=== PATIENT | female | born 1945 | race Caucasian/White ===

== ENCOUNTER 2023-07-03 12:33 | Outpatient (CLI) | payer MEDICARE, SELFPAY ==
--- NOTE | 2023-07-03 12:46 | ECG_ITS ---
Measurements Intervals [place] Rate: 84 P: 68 MT: 157 QRS: -18 QRSD: 79 T: 58 QT: 355 QTc: 420 Interpretive Statements SINUS RHYTHM LOW QRS VOLTAGE IN PRECORDIAL LEADS BORDERLINE R WAVE PROGRESSION, ANTERIOR LEADS BASELINE ARTIFACT- I, II, V4-V6 BORDERLINE ECG NO PREVIOUS ECG AVAILABLE FOR COMPARISON Electronically Signed On 07-03-2023 14:40:40 DENTAL HYGIENE PROFESSOR by Percy Gong D.O.
[2023-07-03 13:12] LABS: Hematocrit 23.4 % (37.0-47.0)
[2023-07-03 13:23] LABS: Hemoglobin 6.8 g/dL (12.0-15.0)
== END 2023-07-03 12:34 | disposition home or self-care (01) ==
LOC: ANHSURGERY 12:37
PROVIDERS: Anesthesiology; Visit Provider Urology
DX: Z01.818 Encounter for other preprocedural examination (principal); E78.00 Pure hypercholesterolemia, unspecified; D64.9 Anemia, unspecified; R93.1 Abnormal findings on diagnostic imaging of heart and coronary circulation
CPT/HCPCS: 36415; 85014; 85018; 93005